=== PATIENT | male | born 1940 | race African-American/Black ===

== ENCOUNTER 2016-07-23 13:16 | Day surgery (SDC) | payer MEDICARE ==
[~2016-07-23] VITALS: Ht 167.6 cm; Wt 62.7 kg
[~2016-07-23 13:16] MED LIST: ALBUTEROL2.5 MG/3 M IH; ALBUTEROL2.5 MG/3 M INH; BENTYL10 MG PO; CROMOLYN PO; FAMOTIDINE10 MG PO; KLONOPIN0.5 MG PO; LEXAPRO10 MG PO; MULTIPLE VITAMI1 TA1 PO; NEURONTIN 300300 MG PO; NORVASC5 MG PO; OMEPRAZOLE40 MG PO; PEPCID40 MG PO; PERCOCET 10/3251 TA1 PO; PLAVIX75 MG PO; PREDNISONE20 MG PO; PROTONIX40 MG PO; REGLAN10 MG PO; SIMETHICON40 MG/0.6 PO; STOOL SOFTENER100 M1 PO; TUMS X-STR300 MG PO; VITAMIN C250 MG; ZOFRAN4 MG PO
[2016-07-23 14:23] LABS: HEMATOCRIT 44.2 % (42.0-54.0); HEMOGLOBIN 13.9 g/dL (13.5-17.5); MCHC 31.4 g/dL (31.0-37.0); MCV 76.3 fL (80.0-100.0); PLATELET COUNT 178 10x3/uL (130-400); RBC 5.79 10x6/uL (4.20-6.10); WBC 4.8 10x3/uL (4.8-10.8)
[2016-07-23 14:51] VITALS: BP 126/63; Ht 167.6 cm; Wt 62.7 kg
--- NOTE | 2016-07-23 17:34 | NUR ---
1700 IV DC WITH CATHER TIP INTACT
--- NOTE | 2016-07-29 19:32 | OP ---
PATIENT NAME: JAIMEE PRABHAKAR MEDICAL RECORD: [id number] :38 LOCATION:[facility] ADMISSION DATE: SURGEON: ROB PASCUAL DO DATE OF OPERATION: 07/23/2016 PROCEDURE: EGD with biopsies. INDICATIONS: Heartburn and nausea. SCOPE: Olympus video gastroscope. MEDICATIONS: Propofol 150 mg IV per anesthesia. ESTIMATED BLOOD LOSS: Minimal. COMPLICATIONS: None. FINDINGS: Informed consent was given. The patient was made comfortable with the above medication. After reaching an adequate level of sedation by slow IV push, the patient was placed on his left side. The endoscope was then advanced under direct visualization through the mouth to the second portion of the duodenum. The upper, middle and distal thirds of the esophagus appeared normal. At the GE junction, there was evidence of LA class B reflux-induced esophagitis. The endoscope was advanced beyond the GE junction and retroflexed in the stomach to view the cardia. There was evidence of a sdalqryn-vo-yrqmd sized sliding and paraesophageal hiatal hernia. There were no associated ulcerations or other abnormalities associated with this hernia. The fundus and body of the stomach appeared normal. In the antrum and prepyloric region, there was some erythema and granularity as well as some congestion consistent with mild gastritis. The endoscope was advanced beyond the pylorus into the duodenum where the bulb and second portion of the duodenum appeared normal. The endoscope is withdrawn from the patient. The patient tolerated the procedure well and there were no complications. IMPRESSION: 1. Reflux esophagitis grade B. 2. 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 3. Granularity and erythema of the stomach consistent with gastritis, biopsies pending. PLAN AND RECOMMENDATIONS: 1. Discharge home when recovery parameters are met. 2. Continue a GERD diet and reflux precautions. 3. Continue current medications as they are controlling symptoms currently. 4. Follow up biopsy specimen results. 5. Follow up in GI clinic as needed. TRANSINT:[id number] Voice Confirmation ID: [id number] DOCUMENT ID: [id number] OPERATIVE REPORT [id number] JAIMEE PRABHAKAR ROB PASCUAL DO at 1932 CC: [id number] DICTATION DATE: 07/23/16 1600 STOCK TURNER: 07/23/164 [facility] 07/23/16 [facility] [address] [id number]
== END 2016-07-23 17:15 | disposition home or self-care (01) ==
LOC: D.OPS 13:16
PROVIDERS: Anesthesiology
DX: K21.0 Gastro-esophageal reflux disease with esophagitis (principal); K44.9 Diaphragmatic hernia without obstruction or gangrene; R10.9 Unspecified abdominal pain; F17.200 Nicotine dependence, unspecified, uncomplicated; I10 Essential (primary) hypertension; J44.9 Chronic obstructive pulmonary disease, unspecified; M19.90 Unspecified osteoarthritis, unspecified site; Z01.812 Encounter for preprocedural laboratory examination